=== PATIENT | female | born 1965 | race Caucasian/White ===

== ENCOUNTER 2023-04-17 19:47 | Emergency (ER) | payer OTHER, SELFPAY ==
[2023-04-17 19:52] VITALS: BP 170/106; PULSE 100; RESP 18; TEMP 37; O2SAT 100; BMI 23.4
--- NOTE | 2023-04-17 19:55 | XR_ITS ---
The [address] [address] Patient Name: HALIE LEVIN MRN: [id number] date: 1965 Sex: F Assigned Patient Location: ED.MAIN Current Patient Location: ED.MAIN Accession/Order Number: [id number] Exam Date: 04/17/2023 20:08 Report Date: 04/17/2023 20:38 At the request of: JUDSON YOUNG Procedure: XR ankle RT min 3V EXAM: XR ankle RT min 3V HISTORY: twisted , now with pain. COMPARISON: 04/03/2021 TECHNIQUE: 3 views of the right ankle were obtained. FINDINGS: There is no clear evidence of an acute fracture or dislocation. There is a thin linear sclerotic line in the distal fibular metaphysis, which is unchanged. Subtle calcification or possibly a remote fracture fragment is seen at the tip of the medial malleolus. The mortise is intact. No osteochondral injury is identified. No abnormal soft tissue calcifications are present. IMPRESSION: No apparent acute fracture or dislocation. Except for a small amount of calcification or possibly remote fracture near or at the tip of the medial malleolus, the overall appearance of the ankle is unchanged. Electronically authenticated by: YONIS COOK Date: 04/17/2023 20:38
--- NOTE | 2023-04-17 19:55 | XR_ITS ---
[address] [address] Patient Name: HALIE LEVIN MRN: [id number] date: 1965 Sex: F Assigned Patient Location: ED.MAIN Current Patient Location: ER Accession/Order Number: [id number] Exam Date: 04/17/2023 20:08 Report Date: 04/17/2023 20:40 At the request of: JUDSON YOUNG Procedure: XR foot RT min 3V EXAM: XR foot RT min 3V HISTORY: twisted COMPARISON: Ankle x-rays of same day TECHNIQUE: 3 views FINDINGS: IMPRESSION: Nondisplaced comminuted intra-articular fracture of the fifth metatarsal base. Associated soft tissue edema. Joint spaces are unremarkable. Electronically authenticated by: NELDA RITTER Date: 04/17/2023 20:40
--- NOTE | 2023-04-17 19:58 | ED_ITS ---
HPI - Extremity Injury (Lower) General Chief Complaint: Extremity Injury, Lower Stated Complaint: poss broken foot Time Seen by Provider: 04/17/23 19:57 Source: patient Mode of arrival: Wheelchair Limitations: no limitations History of Present Illness HPI Narrative: twisted her right foot just [employer]. Developed pain and mild swelling of her foot. Denies pain of her ankle. Increased pain with weight bearing. Denies numbness or weakness MD complaint: Reports foot injury Injury: Right: foot Type of Injury: Reports eversion Place: Reports home Severity: mild Relieving factors: Reports nothing Exacerbating factors: Reports weight bearing Associated symptoms: Reports swelling Other symptoms: Reports none Related Data Home Medications Medication Instructions Recorded Confirmed No Known Home Medications 04/17/23 04/17/23 Allergies Allergy/AdvReac Type Severity Reaction Status Date / Time Penicillins Allergy Intermediate Verified 04/17/23 19:54 Review of Systems ROS Status of ROS 10 or more systems reviewed and unremarkable except as noted in history and below Exam Narrative: Exam Narrative: patient resting on stretcher. mild distress related to her right foot Constitutional: Vital Signs - 24 hr 04/17/23 19:52 Temperature 98.6 F Pulse Rate [Monito r] 100 H Respiratory Rate 18 Blood Pressure [Ri ght Arm] 170/106 H Pulse Oximetry 100 HENMT: Common normals: normocephalic Eye: Common normals: PERRL, EOMs intact bilaterally and conjunctivae normal Chest: Common normals: inspection of chest normal Cardio: Common normals: regular rate, regular rhythm, S1 normal heart sound, S2 normal heart sound and no murmurs GI: Common normals: Normal to inspection, nondistended, normoactive bowel sounds present and soft to palpation Back & Pelvis: Common normals: thoracic and lumbar spine normal to inspection Extremity: Common normals: normal to inspection (mild swelling lat. dorsum right foot. mod. tenderness. ankle nontender) Neuro: Common normals: oriented x3 and CN's II-XII intact bilaterally Psych: Common normals: mental status grossly normal Skin: Common normals: no rashes or lesions noted, no wounds, skin turgor normal, no jaundice, no petechiae and no mottling Course Course Hospital Course: patient presents with acute right foot injury. xray reports acute comminuted non displaced fracture of proximal 5th metatarsal. Patinet provided with orthopedic shoe and crutches. Discharged home with a prescription of [place] and advised to follow up with orthopedics Vital Signs Vital signs: Vital Signs Temperature 98.6 F 04/17/23 19:52 Pulse Rate 100 H 04/17/23 19:52 Respiratory Rate 18 04/17/23 19:52 Blood Pressure 170/106 H 04/17/23 19:52 Pulse Oximetry 100 04/17/23 19:52 Temperature 98.6 F 04/17/23 19:52 Pulse Rate 100 H 04/17/23 19:52 Respiratory Rate 18 04/17/23 19:52 Blood Pressure 170/106 H 04/17/23 19:52 Pulse Oximetry 100 04/17/23 19:52 MDM - Extremity Injury (Lower) MDM Narrative Medical decision making narrative: patient arrives after injury twisting her right foot. exam with tenderness and swelling of the dorsum of the foot. N/V intact. ICE applied and xrays ordered. Patient ordered [place] for pain Discharge Plan Discharge Chief Complaint: Extremity Injury, Lower Clinical Impression: Foot fracture, right Mode of Transportation: Private Vehicle Prescriptions / Home Meds: No Action No Known Home Medications Instructions: Foot Fracture in Adults (ED) Stand Alone Forms: Portal Instructions Referrals: Physician,Non-Staff, MD [Primary Care Provider] - 1 week Follow Up Appointments: follow up with Orthopedics
[2023-04-17] MEDS: HYDROCODONE/ACETAMINOPHEN 5-325 MG TABLET 2 TAB PO ×2 (20:22→21:42)
--- NOTE | 2023-04-17 21:04 | PC.NURSE ---
Physician at cart side to talk with patient about findings.
== END 2023-04-17 21:55 | disposition home or self-care (01) ==
PROVIDERS: Emergency Provider Internal Medicine
DX: S92.354A Nondisplaced fracture of fifth metatarsal bone, right foot, initial encounter for closed fracture (principal); X50.1XXA Overexertion from prolonged static or awkward postures, initial encounter
CPT/HCPCS: 73610; 73630; 99284

== ENCOUNTER 2023-04-23 13:30 | Outpatient (OUT) | payer OTHER, SELFPAY ==
--- NOTE | 2023-04-23 13:41 | CT_ITS ---
[address] [address] Patient Name: HALIE LEVIN MRN: [id number] date: 1965 Sex: F Assigned Patient Location: CT Current Patient Location: CT Accession/Order Number: [id number] Exam Date: 04/23/2023 14:15 Report Date: 04/23/2023 15:05 At the request of: MARLENE VILLAFANA Procedure: CT foot RT wo con EXAMINATION: CT foot RT wo con HISTORY: Injury Of Posterior Tibial Artery, Right Leg S85.181A ; fifth metatarsal fracture; injury several days ago COMPARISON: XR foot right 04/17/2023 2 TECHNIQUE: Multi-planar CT images were created without IV contrast. Dose reduction techniques were achieved by using automated exposure control and/or adjustment of mA and/or kV according to patient size and/or use of iterative reconstruction technique. FINDINGS: BONES: Transverse fracture through base of fifth metatarsal with intra-articular extension; no displacement. No callus formation along the margins. No additional fracture or dislocation of the right foot. SOFT TISSUES: Mild lateral soft tissue swelling. EFFUSION: None visible. OTHER: Negative. IMPRESSION: 1. Acute, nondisplaced base of fifth metatarsal fracture with intra-articular extension. No additional fractures. Electronically authenticated by: ELEANOR RODRIGUEZ Date: 04/23/2023 15:05
== END 2023-04-23 13:31 ==
PROVIDERS: Visit Provider Physician Assistant
DX: S99.191A Other physeal fracture of right metatarsal, initial encounter for closed fracture (principal)
CPT/HCPCS: 73700

== ENCOUNTER 2023-05-12 13:30 | Outpatient (OUT) | payer OTHER, SELFPAY ==
--- NOTE | 2023-05-12 13:36 | XR_ITS ---
The [address] [address] Patient Name: HALIE LEVIN MRN: [id number] date: 1965 Sex: F Assigned Patient Location: [facility] Current Patient Location: [facility] Accession/Order Number: [id number] Exam Date: 05/12/2023 13:36 Report Date: 05/12/2023 14:02 At the request of: MARLENE VILLAFANA Procedure: XR foot RT min 3V EXAM: XR foot RT min 3V HISTORY: RIGHT FOOT PAIN COMPARISON: None. TECHNIQUE: Three views of the right foot. FINDINGS: There is a nondisplaced acute avulsion fracture at the proximal aspect of the fifth metatarsal. No soft tissue abnormality. IMPRESSION: 1. Acute nondisplaced avulsion fracture at the base of the fifth metatarsal. Electronically authenticated by: PERRY CASTAÑEDA Date: 05/12/2023 14:02
== END 2023-05-12 13:31 | disposition home or self-care (01) ==
LOC: RAD 13:30
PROVIDERS: Visit Provider Physician Assistant
DX: S99.191A Other physeal fracture of right metatarsal, initial encounter for closed fracture (principal)
CPT/HCPCS: 73630